=== PATIENT | male | born 2000 | race Two or more races ===

== ENCOUNTER 2020-03-04 11:52 | Emergency (ER) | payer MEDICAID, OTHER ==
[~2020-03-04] VITALS: Ht 188 cm; Wt 90.7 kg
[2020-03-04 12:35] VITALS: BP 153/87
[2020-03-04] MEDS ORDERED: IBUPROFEN 800 MG TAB PO ONE (14:15)
== END 2020-03-04 14:36 | disposition home or self-care (01) ==
LOC: ER 11:52
DX: S92.354A Nondisplaced fracture of fifth metatarsal bone, right foot, initial encounter for closed fracture (principal); X50.1XXA Overexertion from prolonged static or awkward postures, initial encounter; Y93.89 Activity, other specified; Y92.89 Other specified places as the place of occurrence of the external cause; Y99.8 Other external cause status
CPT/HCPCS: 29515; 73630